=== PATIENT | male | born 1935 | race Caucasian/White ===

== ENCOUNTER 2017-09-07 09:13 | Inpatient (IN) | payer OTHER ==
[~2017-09-07] VITALS: Ht 167.6 cm; Wt 72.5 kg
[~2017-09-07 09:13] MED LIST: AMLODIPINE BESYL5 MG PO; ASPIRIN81 M1 PO; AVODART0.5 MG PO; BACTRIM,SEPT1 TABLET PO; FENOFIBRATE160 MG PO; FINASTERIDE5 M1 PO; FLEXERIL10 MG PO; HYDROCHLOROTH12.5 M1 PO; JALYN 0.5-0.41 EACH PO; JALYN PO; LEVOXYL112 MCG PO; LISINOPRIL40 MG PO; LO-DOSE ASPIRIN81 M1 PO; LOPRESSOR50 MG; METOPROLOL TAR100 MG PO; NAPROSYN500 MG PO; NASONEX17 GM BOTH NARES; NORVASC5 MG PO; OMEPRAZOLE40 M1 PO; PRAVACHOL40 MG PO; PRAVASTATIN SOD40 MG; PRAVASTATIN SOD40 MG PO; PROMETHAZINE HC25 M1 PO; Pravachol PO; TOPROL XL100 MG PO; TYLENOL REGULA325 MG PO; VIAGRA100 MG PO; XANAX0.5 MG PO; ZESTRIL,PRINIVI20 MG PO; ZETIA10 MG PO; ZITHROMAX Z-PA250 MG PO; ZOFRAN ODT4 MG PO
[2017-09-07 10:16] LABS: BASOPHIL (%) 0.1 % (0-1); EOSINOPHIL (%) 0.3 % (0-5); HEMATOCRIT 36.8 % (38.0-50.0); IMMATURE GRANULOCYTE (%) 0.4 % (0.0-0.7); LYMPHOCYTE (%) 4.9 % (15-42); LYMPHOCYTE COUNT 0.5 K/uL (1.0-2.8); MCH 29.9 PG (29.0-34.0); MCHC 33.7 G/DL (30.0-36.0); MCV 88.7 FL (86-99); MONOCYTE (%) 8.2 % (3-12); MONOCYTE COUNT 0.8 K/uL (0-0.8); NEUTROPHIL (%) 86.1 % (45-76); NEUTROPHIL COUNT 8.6 K/uL (1.8-6.4); PLATELET COUNT 132 K/uL (156-360); RBC DIS.WIDTH-CV 13.7 % (11.8-14.6); RBC DIS.WIDTH-SD 45.1 % (39-53); RED BLOOD COUNT 4.15 M/uL (4.00-5.50)
[2017-09-07 10:19] LABS: HEMOGLOBIN 12.4 G/DL (12.5-16.6)
[2017-09-07 10:29] LABS: CHLORIDE 101 mEq/L (99-109); SODIUM 136 mEq/L (136-147)
[2017-09-07 10:31] LABS: GLUCOSE 125 mg/dL (70-99)
[2017-09-07 10:35] LABS: CREATININE 1.5 mg/dL (0.6-1.3); GFR ESTIMATE (CALCULATED) 48 mL/min/ (58.99-99999)
[2017-09-07 10:36] LABS: UREA NITROGEN (BUN) 27 mg/dL (9-23)
[2017-09-07 12:13] LABS: APPEARANCE CLEAR ((CLEAR)); BILIRUBIN NEGATIVE; BLOOD SMALL; COLOR YELLOW ((YELLOW)); GLUCOSE (STRIP) NEGATIVE; KETONES NEGATIVE; LEUKOCYTES NEGATIVE; NITRITE NEGATIVE; PROTEIN (STRIP) >=500
[2017-09-07 12:18] LABS: BACTERIA RARE /HPF; EPITHELIAL CELLS NONE SEEN /HPF; HYALINE CASTS 0-5 /LPF; MUCUS TRACE /LPF; RED BLOOD CELLS 0-5 /HPF (0-5); UCUL ADDED? NO; WHITE BLOOD CELLS 0-5 /HPF (0-5)
[2017-09-07 12:53] LABS: TROP-I INTERPRETATION NEGATIVE
[2017-09-07 14:10] LABS: C-REACTIVE PROTEIN > 240.0 MG/L (0-10)
[2017-09-07 14:55] LABS: ERTH.SED.RATE 36 MM/HR (0-20)
[2017-09-07] MEDS ORDERED: ALPRAZOLAM0.5 MG PO (16:43)
[2017-09-07] MEDS ORDERED: TOPROL XL50 MG PO (16:44)
[2017-09-07] MEDS ORDERED: VITAMIN D22000 UNIT PO (16:45)
[2017-09-07] MEDS ORDERED: VITAMIN D31000 UNIT PO (16:45)
[2017-09-07] MEDS ORDERED: FLOMAX0.4 MG PO (16:46)
[2017-09-07] MEDS ORDERED: PROSCAR5 MG PO (16:47)
[2017-09-07] MEDS ORDERED: NORCO 5/3251 TABLET PO (16:47)
[2017-09-07 20:09] LABS: TROP-I INTERPRETATION POSITIVE
[2017-09-07 20:10] LABS: TROPONIN-I 2.68 ng/mL (0.0-0.30)
[2017-09-08] VITALS (10 sets, daily range): BP systolic 109–165; BP diastolic 54–82
[2017-09-08 11:50] LABS: TROP-I INTERPRETATION POSITIVE
[2017-09-08 11:53] LABS: TROPONIN-I 61.72 ng/mL (0.0-0.30)
[2017-09-08 15:49] LABS: HEMATOCRIT 36.2 % (38.0-50.0); HEMOGLOBIN 12.1 G/DL (12.5-16.6); MCH 29.1 PG (29.0-34.0); MCHC 33.4 G/DL (30.0-36.0); PLATELET COUNT 121 K/uL (156-360); RBC DIS.WIDTH-CV 13.6 % (11.8-14.6); RBC DIS.WIDTH-SD 43.1 % (39-53); RED BLOOD COUNT 4.16 M/uL (4.00-5.50); WHITE BLOOD COUNT 6.3 K/uL (4.1-10.2)
[2017-09-08 15:55] LABS: INTER. NORMALIZED RATIO 1.2
[2017-09-08 15:57] LABS: PTT 29.6 SEC (25-37)
[2017-09-08 16:00] LABS: ALBUMIN 3.3 G/DL (3.2-4.8); CHLORIDE 100 MEQ/L (99-109); POTASSIUM 3.7 MEQ/L (3.7-5.4); SODIUM 135 MEQ/L (136-147); TOTAL BILIRUBIN 1.3 MG/DL (0.0-1.0)
[2017-09-08 16:05] LABS: ALKALINE PHOSPHATASE 71 IU/L (3-129); ALT (GPT) 46 IU/L (3-49); AST (GOT) 136 IU/L (2-34); CREATININE 1.4 MG/DL (0.6-1.3); GFR ESTIMATE (CALCULATED) 52 mL/min/ (58.99-99999); GLUCOSE 126 mg/dL (70-99); TOTAL PROTEIN 5.9 G/DL (6.4-8.3); UREA NITROGEN (BUN) 29 mg/dL (9-23)
[2017-09-08 18:58] LABS: TROP-I INTERPRETATION POSITIVE; TROPONIN-I 93.92 ng/mL (0.0-0.30)
[2017-09-09] VITALS (21 sets, daily range): BP systolic 100–157; BP diastolic 51–77
[2017-09-09 03:03] LABS: TROP-I INTERPRETATION POSITIVE
[2017-09-09 03:07] LABS: TROPONIN-I 62.35 ng/mL (0.0-0.30)
[2017-09-09 13:04] LABS: HEMATOCRIT 32.4 % (38.0-50.0); HEMOGLOBIN 10.5 G/DL (12.5-16.6); MCH 28.6 PG (29.0-34.0); MCHC 32.4 G/DL (30.0-36.0); MCV 88.3 FL (86-99); PLATELET COUNT 125 K/uL (156-360); RBC DIS.WIDTH-CV 13.7 % (11.8-14.6); RBC DIS.WIDTH-SD 44.7 % (39-53); RED BLOOD COUNT 3.67 M/uL (4.00-5.50); WHITE BLOOD COUNT 6.3 K/uL (4.1-10.2)
[2017-09-09 13:31] LABS: TROP-I INTERPRETATION POSITIVE; TROPONIN-I 33.93 ng/mL (0.0-0.30)
[2017-09-09 18:32] LABS: TROP-I INTERPRETATION POSITIVE; TROPONIN-I 35.13 ng/mL (0.0-0.30)
[2017-09-10] VITALS (19 sets, daily range): BP systolic 95–162; BP diastolic 46–88
[2017-09-10 05:48] LABS: HEMATOCRIT 33.6 % (38.0-50.0); MCH 28.9 PG (29.0-34.0); MCHC 32.7 G/DL (30.0-36.0); MCV 88.2 FL (86-99); PLATELET COUNT 128 K/uL (156-360); RBC DIS.WIDTH-CV 14.2 % (11.8-14.6); RBC DIS.WIDTH-SD 45.9 % (39-53); RED BLOOD COUNT 3.81 M/uL (4.00-5.50); WHITE BLOOD COUNT 5.6 K/uL (4.1-10.2)
[2017-09-10 07:31] LABS: CHLORIDE 104 MEQ/L (99-109); CREATININE 2.2 MG/DL (0.6-1.3); GFR ESTIMATE (CALCULATED) 31 mL/min/ (58.99-99999); GLUCOSE 112 mg/dL (70-99); POTASSIUM 3.5 MEQ/L (3.7-5.4); SODIUM 140 MEQ/L (136-147); UREA NITROGEN (BUN) 38 mg/dL (9-23)
[2017-09-11 00:12] VITALS: BP 155/70
[2017-09-11 03:56] VITALS: BP 162/71
[2017-09-11 06:00] LABS: BASOPHIL (%) 0.3 % (0-1); EOSINOPHIL COUNT 0.1 K/uL (0-0.3); HEMATOCRIT 32.4 % (38.0-50.0); HEMOGLOBIN 10.7 G/DL (12.5-16.6); IMMATURE GRANULOCYTE (%) 0.3 % (0.0-0.7); LYMPHOCYTE (%) 10.9 % (15-42); LYMPHOCYTE COUNT 0.7 K/uL (1.0-2.8); MCH 29.2 PG (29.0-34.0); MCV 88.5 FL (86-99); MONOCYTE (%) 10.2 % (3-12); MONOCYTE COUNT 0.6 K/uL (0-0.8); NEUTROPHIL (%) 77.3 % (45-76); NEUTROPHIL COUNT 4.6 K/uL (1.8-6.4); PLATELET COUNT 142 K/uL (156-360); RBC DIS.WIDTH-CV 14.5 % (11.8-14.6); RBC DIS.WIDTH-SD 47.5 % (39-53); RED BLOOD COUNT 3.66 M/uL (4.00-5.50)
[2017-09-11 06:24] LABS: CHLORIDE 103 MEQ/L (99-109); CREATININE 2.1 MG/DL (0.6-1.3); GFR ESTIMATE (CALCULATED) 32 mL/min/ (58.99-99999); GLUCOSE 145 mg/dL (70-99); POTASSIUM 3.4 MEQ/L (3.7-5.4); SODIUM 141 MEQ/L (136-147); UREA NITROGEN (BUN) 37 mg/dL (9-23)
[2017-09-11 07:52] VITALS: BP 149/68
[2017-09-11 11:24] VITALS: BP 137/63
[2017-09-11 15:10] VITALS: BP 141/65
[2017-09-11 17:58] LABS: APPEARANCE CLOUDY ((CLEAR)); BILIRUBIN NEGATIVE; BLOOD LARGE; COLOR AMBER ((YELLOW)); GLUCOSE (STRIP) NEGATIVE; KETONES NEGATIVE; LEUKOCYTES NEGATIVE; NITRITE NEGATIVE; PROTEIN (STRIP) 100; SPECIFIC GRAVITY 1.013 (1.000-1.030)
[2017-09-11 18:17] LABS: UR CREATININE CONCENTRATION 79.9 MG/DL
[2017-09-11 18:39] LABS: EPITHELIAL CELLS NONE SEEN /HPF; MUCUS 1+ /LPF; RED BLOOD CELLS TNTC /HPF (0-5); WHITE BLOOD CELLS 0-5 /HPF (0-5)
[2017-09-11 18:40] LABS: BACTERIA 2+ /HPF; UCUL ADDED? YES
[2017-09-11 20:08] VITALS: BP 165/72
[2017-09-12] VITALS (7 sets, daily range): BP systolic 122–173; BP diastolic 58–86
[2017-09-12 05:33] LABS: HEMATOCRIT 30.7 % (38.0-50.0); MCH 28.8 PG (29.0-34.0); MCHC 32.6 G/DL (30.0-36.0); MCV 88.5 FL (86-99); PLATELET COUNT 139 K/uL (156-360); RBC DIS.WIDTH-CV 14.7 % (11.8-14.6); RBC DIS.WIDTH-SD 47.8 % (39-53); RED BLOOD COUNT 3.47 M/uL (4.00-5.50); WHITE BLOOD COUNT 5.4 K/uL (4.1-10.2)
[2017-09-12 06:09] LABS: BASOPHIL (%) 0.4 % (0-1); EOSINOPHIL (%) 3.4 % (0-5); EOSINOPHIL COUNT 0.2 K/uL (0-0.3); HEMATOLOGY COMMENT 1 SMEAR COMPATIBLE; IMMATURE GRANULOCYTE (%) 0.7 % (0.0-0.7); LYMPHOCYTE (%) 14.8 % (15-42); LYMPHOCYTE COUNT 0.8 K/uL (1.0-2.8); MONOCYTE (%) 10.7 % (3-12); MONOCYTE COUNT 0.6 K/uL (0-0.8); NEUTROPHIL COUNT 3.8 K/uL (1.8-6.4); PLAT.SUFFICIENCY DECREASED
[2017-09-12 06:29] LABS: ALBUMIN 2.6 G/DL (3.2-4.8); ALT (GPT) 42 IU/L (3-49); CHLORIDE 105 MEQ/L (99-109); GFR ESTIMATE (CALCULATED) 34 mL/min/ (58.99-99999); MAGNESIUM 2.3 mg/dl (1.3-2.7); PHOSPHORUS 2.9 mg/dL (2.5-4.9); POTASSIUM 3.7 MEQ/L (3.7-5.4); SODIUM 140 MEQ/L (136-147); TOTAL BILIRUBIN 1.5 MG/DL (0.0-1.0); TOTAL PROTEIN 5.3 G/DL (6.4-8.3); UREA NITROGEN (BUN) 36 mg/dL (9-23)
[2017-09-12 06:30] LABS: ALKALINE PHOSPHATASE 107 IU/L (3-129); AST (GOT) 58 IU/L (2-34); GLUCOSE 106 mg/dL (70-99)
[2017-09-13] VITALS (10 sets, daily range): BP systolic 145–199; BP diastolic 72–122
[2017-09-13 06:02] LABS: MCH 28.7 PG (29.0-34.0); MCHC 32.3 G/DL (30.0-36.0); MCV 89.1 FL (86-99); PLATELET COUNT 169 K/uL (156-360); RBC DIS.WIDTH-CV 14.9 % (11.8-14.6); RBC DIS.WIDTH-SD 48.4 % (39-53); RED BLOOD COUNT 3.48 M/uL (4.00-5.50); WHITE BLOOD COUNT 7.3 K/uL (4.1-10.2)
[2017-09-13 06:45] LABS: CHLORIDE 106 MEQ/L (99-109); CREATININE 1.9 MG/DL (0.6-1.3); GFR ESTIMATE (CALCULATED) 36 mL/min/ (58.99-99999); GLUCOSE 95 mg/dL (70-99); POTASSIUM 3.3 MEQ/L (3.7-5.4); SODIUM 143 MEQ/L (136-147); UREA NITROGEN (BUN) 32 mg/dL (9-23)
[2017-09-13 19:41] LABS: HEMATOCRIT 34.2 % (38.0-50.0); HEMOGLOBIN 11.2 G/DL (12.5-16.6); MCH 29.1 PG (29.0-34.0); MCHC 32.7 G/DL (30.0-36.0); MCV 88.8 FL (86-99); PLATELET COUNT 218 K/uL (156-360); RBC DIS.WIDTH-CV 14.9 % (11.8-14.6); RED BLOOD COUNT 3.85 M/uL (4.00-5.50); WHITE BLOOD COUNT 8.9 K/uL (4.1-10.2)
[2017-09-13 19:49] LABS: INTER. NORMALIZED RATIO 1.2
[2017-09-13 19:52] LABS: PTT 29.5 SEC (25-37)
[2017-09-13 20:10] LABS: ABS NEUTROPHIL COUNT 7.3; ATYPICAL LYMPHOCYTE 0.9 %; BAND NEUTROPHILS 1.7 % (0-8.0); BASOPHILS 0.9 %; EOSINOPHIL ABS CT 0.2; EOSINOPHILS 1.7 % (0-5.0); LYMPHOCYTES 4.4 % (15.0-45.0); MONOCYTES 7.8 % (0-9.0); MYELOCYTES 0.9 %; OTHER 1.7; PLAT.SUFFICIENCY ADEQUATE; POLYCHROMASIA 1+; SPHEROCYTES 1+
[2017-09-13 20:11] LABS: ALBUMIN 2.9 G/DL (3.2-4.8); ALKALINE PHOSPHATASE 108 IU/L (3-129); ALT (GPT) 48 IU/L (3-49); AST (GOT) 48 IU/L (2-34); CHLORIDE 105 MEQ/L (99-109); CREATININE 1.8 MG/DL (0.6-1.3); GFR ESTIMATE (CALCULATED) 39 mL/min/ (58.99-99999); GLUCOSE 156 mg/dL (70-99); POTASSIUM 3.6 MEQ/L (3.7-5.4); SODIUM 140 MEQ/L (136-147); TOTAL BILIRUBIN 0.9 MG/DL (0.0-1.0); TOTAL PROTEIN 6.6 G/DL (6.4-8.3); UREA NITROGEN (BUN) 28 mg/dL (9-23)
[2017-09-13 21:47] LABS: CREATINE KINASE 45 IU/L (1-294); TOTAL CK 45 IU/L (1-294)
[2017-09-13 21:50] LABS: CK-MB 1.8 ng/mL (0.0-4.9)
[2017-09-13 21:55] LABS: TROP-I INTERPRETATION POSITIVE
[2017-09-14] VITALS (25 sets, daily range): BP systolic 85–204; BP diastolic 47–105
[2017-09-14 01:51] LABS: HEMATOCRIT 35.8 % (38.0-50.0); HEMOGLOBIN 11.8 G/DL (12.5-16.6); MCH 29.8 PG (29.0-34.0); MCV 90.4 FL (86-99); PLATELET COUNT 282 K/uL (156-360); RBC DIS.WIDTH-CV 15.1 % (11.8-14.6); RBC DIS.WIDTH-SD 50.6 % (39-53); RED BLOOD COUNT 3.96 M/uL (4.00-5.50); WHITE BLOOD COUNT 17.1 K/uL (4.1-10.2)
[2017-09-14 02:05] LABS: CHLORIDE 106 mEq/L (99-109); POTASSIUM 3.3 mEq/L (3.7-5.4); SODIUM 141 mEq/L (136-147)
[2017-09-14 02:06] LABS: GLUCOSE 204 mg/dL (70-99)
[2017-09-14 02:10] LABS: CREATININE 1.8 mg/dL (0.6-1.3); GFR ESTIMATE (CALCULATED) 39 mL/min/ (58.99-99999)
[2017-09-14 02:11] LABS: UREA NITROGEN (BUN) 28 mg/dL (9-23)
[2017-09-14 02:12] LABS: CREATINE KINASE 58 IU/L (1-294); TOTAL CK 58 IU/L (1-294)
[2017-09-14 02:13] LABS: TROP-I INTERPRETATION POSITIVE
[2017-09-14 02:18] LABS: CK-MB 2.8 ng/mL (0.0-4.9); CKMB RELATIVE INDEX 4.8 (0.0-3.9)
[2017-09-14 02:19] LABS: TROPONIN-I 3.93 ng/mL (0.0-0.30)
[2017-09-14 02:42] LABS: BASE EXCESS -3.9 mEq/L (-3 to +3); BICARBONATE 21.6 mEq/L (22-26); CARBOXY HGB 0.7 % (0-5); DEVICE 980; FI02 70 %; MECHANICAL RATE 14 resp/min; METHEMOGLOBIN 1.4 % (0-1.5); PCO2 40 mm Hg (35-45); PEEP 5 CM/H20; PO2 95 mm Hg (80-100); SITE RR; TIDAL VOLUME 400 ML; TOTAL RESP RATE 19 resp/min; pH 7.34 (7.35-7.45)
[2017-09-14 03:58] LABS: TRIGLYCERIDES 676 MG/DL (Normal: <150)
[2017-09-14 05:23] LABS: BASE EXCESS -1.8 mEq/L (-3 to +3); BICARBONATE 23.1 mEq/L (22-26); CARBOXY HGB 0.7 % (0-5); METHEMOGLOBIN 1.2 % (0-1.5); PCO2 39 mm Hg (35-45); pH 7.38 (7.35-7.45)
[2017-09-14 05:24] LABS: DEVICE 980; FI02 50 %; MECHANICAL RATE 14 resp/min; MODE AC; PEEP 5 CM/H20; PO2 124 mm Hg (80-100); SITE RR; TIDAL VOLUME 400 ML; TOTAL RESP RATE 17 resp/min
[2017-09-14 10:44] LABS: TROP-I INTERPRETATION POSITIVE
[2017-09-14 12:57] LABS: CK-MB 6.2 ng/mL (0.0-4.9)
[2017-09-14 13:31] LABS: CKMB RELATIVE INDEX 11.1 (0.0-3.9); CREATINE KINASE 56 IU/L (1-294); TOTAL CK 56 IU/L (1-294)
[2017-09-15] VITALS (24 sets, daily range): BP systolic 112–174; BP diastolic 52–91
[2017-09-15 05:18] LABS: CHLORIDE 106 mEq/L (99-109); POTASSIUM 3.9 mEq/L (3.7-5.4); SODIUM 135 mEq/L (136-147)
[2017-09-15 05:19] LABS: BASOPHIL (%) 0.3 % (0-1); EOSINOPHIL (%) 1.4 % (0-5); EOSINOPHIL COUNT 0.1 K/uL (0-0.3); HEMATOCRIT 28.7 % (38.0-50.0); HEMOGLOBIN 10.4 G/DL (12.5-16.6); IMMATURE GRANULOCYTE (%) 1.1 % (0.0-0.7); LYMPHOCYTE (%) 16.6 % (15-42); LYMPHOCYTE COUNT 1.3 K/uL (1.0-2.8); MCH 32.7 PG (29.0-34.0); MCHC 36.2 G/DL (30.0-36.0); MCV 90.3 FL (86-99); MONOCYTE COUNT 0.6 K/uL (0-0.8); NEUTROPHIL (%) 72.6 % (45-76); NEUTROPHIL COUNT 5.5 K/uL (1.8-6.4); RBC DIS.WIDTH-CV 15.6 % (11.8-14.6); RBC DIS.WIDTH-SD 51.6 % (39-53); RED BLOOD COUNT 3.18 M/uL (4.00-5.50); WHITE BLOOD COUNT 7.6 K/uL (4.1-10.2)
[2017-09-15 05:24] LABS: CREATININE 1.8 mg/dL (0.6-1.3); GFR ESTIMATE (CALCULATED) 39 mL/min/ (58.99-99999); GLUCOSE 70 mg/dL (70-99)
[2017-09-15 05:25] LABS: UREA NITROGEN (BUN) 27 mg/dL (9-23)
[2017-09-15 06:05] LABS: PLAT.SUFFICIENCY ADEQUATE
[2017-09-15 06:23] LABS: PLATELET COUNT 176 K/uL (156-360)
[2017-09-15 11:37] LABS: C DIFF TOXIN NEGATIVE (NEGATIVE)
[2017-09-16] VITALS (23 sets, daily range): BP systolic 118–188; BP diastolic 59–108
[2017-09-16 06:44] LABS: CHLORIDE 110 MEQ/L (99-109); CREATININE 1.7 MG/DL (0.6-1.3); GFR ESTIMATE (CALCULATED) 41 mL/min/ (58.99-99999); POTASSIUM 3.3 MEQ/L (3.7-5.4); UREA NITROGEN (BUN) 24 mg/dL (9-23)
[2017-09-16 06:49] LABS: GLUCOSE 117 mg/dL (70-99); SODIUM 143 MEQ/L (136-147)
[2017-09-16 08:15] LABS: TROP-I INTERPRETATION POSITIVE; TROPONIN-I 10.32 ng/mL (0.0-0.30)
[2017-09-16 09:03] LABS: BASE EXCESS -4.9 mEq/L (-3 to +3); BICARBONATE 19.7 mEq/L (22-26); CARBOXY HGB 1.7 % (0-5); METHEMOGLOBIN 1.4 % (0-1.5); pH 7.37 (7.35-7.45)
[2017-09-16 09:04] LABS: COMMENTS - BLOOD GASES A+C+; DEVICE 840; FI02 100 %; MODE MASK VENT; PCO2 34 mm Hg (35-45); PO2 223 mm Hg (80-100); SITE RR
[2017-09-16 09:05] LABS: PEEP 6 CM/H20; PRES. SUPPORT 12 CM/H2O; TOTAL RESP RATE 17 resp/min
[2017-09-16 15:08] LABS: TROP-I INTERPRETATION POSITIVE; TROPONIN-I 9.71 ng/mL (0.0-0.30)
[2017-09-17] VITALS (24 sets, daily range): BP systolic 125–187; BP diastolic 63–117
[2017-09-17 04:43] LABS: BASOPHIL (%) 0.3 % (0-1); EOSINOPHIL (%) 0.2 % (0-5); HEMATOCRIT 29.9 % (38.0-50.0); HEMOGLOBIN 9.8 G/DL (12.5-16.6); LYMPHOCYTE (%) 7.7 % (15-42); LYMPHOCYTE COUNT 0.9 K/uL (1.0-2.8); MCH 29.6 PG (29.0-34.0); MCHC 32.8 G/DL (30.0-36.0); MCV 90.3 FL (86-99); MONOCYTE (%) 5.6 % (3-12); MONOCYTE COUNT 0.7 K/uL (0-0.8); NEUTROPHIL (%) 85.2 % (45-76); NEUTROPHIL COUNT 9.9 K/uL (1.8-6.4); RBC DIS.WIDTH-CV 15.6 % (11.8-14.6); RBC DIS.WIDTH-SD 51.5 % (39-53); RED BLOOD COUNT 3.31 M/uL (4.00-5.50); WHITE BLOOD COUNT 11.6 K/uL (4.1-10.2)
[2017-09-17 04:51] LABS: PLATELET COUNT 242 K/uL (156-360)
[2017-09-17 05:03] LABS: CHLORIDE 112 mEq/L (99-109); POTASSIUM 3.8 mEq/L (3.7-5.4); SODIUM 142 mEq/L (136-147)
[2017-09-17 05:05] LABS: GLUCOSE 104 mg/dL (70-99)
[2017-09-17 05:09] LABS: CREATININE 1.8 mg/dL (0.6-1.3); GFR ESTIMATE (CALCULATED) 39 mL/min/ (58.99-99999)
[2017-09-17 05:10] LABS: UREA NITROGEN (BUN) 23 mg/dL (9-23)
[2017-09-18] VITALS (23 sets, daily range): BP systolic 108–176; BP diastolic 62–93
[2017-09-18 05:26] LABS: BASOPHIL (%) 0.1 % (0-1); EOSINOPHIL (%) 0 % (0-5); HEMATOCRIT 29.2 % (38.0-50.0); HEMOGLOBIN 9.1 G/DL (12.5-16.6); IMMATURE GRANULOCYTE (%) 0.9 % (0.0-0.7); LYMPHOCYTE COUNT 0.5 K/uL (1.0-2.8); MCH 28.4 PG (29.0-34.0); MCHC 31.2 G/DL (30.0-36.0); MCV 91.3 FL (86-99); MONOCYTE COUNT 0.5 K/uL (0-0.8); PLATELET COUNT 264 K/uL (156-360); RBC DIS.WIDTH-CV 15.6 % (11.8-14.6); RBC DIS.WIDTH-SD 51.8 % (39-53); WHITE BLOOD COUNT 10.1 K/uL (4.1-10.2)
[2017-09-18 05:56] LABS: CHLORIDE 109 MEQ/L (99-109); GFR ESTIMATE (CALCULATED) 34 mL/min/ (58.99-99999); GLUCOSE 124 mg/dL (70-99); POTASSIUM 3.9 MEQ/L (3.7-5.4); SODIUM 145 MEQ/L (136-147); UREA NITROGEN (BUN) 23 mg/dL (9-23)
[2017-09-18 05:59] LABS: PHOSPHORUS 4.1 mg/dL (2.5-4.9)
[2017-09-19] VITALS (24 sets, daily range): BP systolic 104–187; BP diastolic 51–122
[2017-09-19 08:18] LABS: HEMATOCRIT 29.6 % (38.0-50.0); HEMOGLOBIN 9.3 G/DL (12.5-16.6); MCH 28.7 PG (29.0-34.0); MCHC 31.4 G/DL (30.0-36.0); MCV 91.4 FL (86-99); PLATELET COUNT 300 K/uL (156-360); RBC DIS.WIDTH-CV 15.6 % (11.8-14.6); RBC DIS.WIDTH-SD 52.6 % (39-53); RED BLOOD COUNT 3.24 M/uL (4.00-5.50); WHITE BLOOD COUNT 10.5 K/uL (4.1-10.2)
[2017-09-19 08:36] LABS: BASE EXCESS -3.6 mEq/L (-3 to +3); BICARBONATE 21.5 mEq/L (22-26); CARBOXY HGB 0.7 % (0-5); METHEMOGLOBIN 1.6 % (0-1.5); PCO2 38 mm Hg (35-45); pH 7.36 (7.35-7.45)
[2017-09-19 08:37] LABS: COMMENTS - BLOOD GASES +C; PO2 171 mm Hg (80-100); SITE RR +A
[2017-09-19 08:38] LABS: DEVICE 980; FI02 70 %; MODE NIV; TOTAL RESP RATE 19 resp/min
[2017-09-19 08:38] LABS: CHLORIDE 109 MEQ/L (99-109); CREATININE 1.9 MG/DL (0.6-1.3); GFR ESTIMATE (CALCULATED) 36 mL/min/ (58.99-99999); GLUCOSE 161 mg/dL (70-99); POTASSIUM 3.4 MEQ/L (3.7-5.4); SODIUM 143 MEQ/L (136-147); UREA NITROGEN (BUN) 22 mg/dL (9-23)
[2017-09-19 08:39] LABS: PEEP 5 CM/H20; PRES. SUPPORT 14 CM/H2O
[2017-09-20] VITALS (24 sets, daily range): BP systolic 118–169; BP diastolic 56–104
[2017-09-20 05:06] LABS: BASOPHIL (%) 0.4 % (0-1); EOSINOPHIL (%) 0.5 % (0-5); HEMATOCRIT 24.8 % (38.0-50.0); IMMATURE GRANULOCYTE (%) 0.7 % (0.0-0.7); LYMPHOCYTE (%) 12.8 % (15-42); MCH 28.8 PG (29.0-34.0); MCHC 32.3 G/DL (30.0-36.0); MCV 89.2 FL (86-99); MONOCYTE COUNT 0.5 K/uL (0-0.8); NEUTROPHIL (%) 79.6 % (45-76); NEUTROPHIL COUNT 6.1 K/uL (1.8-6.4); PLATELET COUNT 280 K/uL (156-360); RBC DIS.WIDTH-CV 15.8 % (11.8-14.6); RBC DIS.WIDTH-SD 50.5 % (39-53); RED BLOOD COUNT 2.78 M/uL (4.00-5.50); WHITE BLOOD COUNT 7.7 K/uL (4.1-10.2)
[2017-09-20 05:33] LABS: CHLORIDE 107 MEQ/L (99-109); CREATININE 1.9 MG/DL (0.6-1.3); GFR ESTIMATE (CALCULATED) 36 mL/min/ (58.99-99999); MAGNESIUM 1.8 mg/dl (1.3-2.7); POTASSIUM 3.3 MEQ/L (3.7-5.4); SODIUM 143 MEQ/L (136-147); UREA NITROGEN (BUN) 22 mg/dL (9-23)
[2017-09-20 05:39] LABS: BASE EXCESS 2.4 mEq/L (-3 to +3); BICARBONATE 26.2 mEq/L (22-26); CARBOXY HGB 2.2 % (0-5); METHEMOGLOBIN 0.7 % (0-1.5); PCO2 36 mm Hg (35-45); pH 7.47 (7.35-7.45)
[2017-09-20 05:40] LABS: COMMENTS - BLOOD GASES C+; DEVICE MASK VENT; FI02 30 %; MODE SPONT; PEEP 5 CM/H20; PRES. SUPPORT 10 CM/H2O; SITE LR; TOTAL RESP RATE 22 resp/min
[2017-09-20 05:47] LABS: GLUCOSE 85 mg/dL (70-99)
[2017-09-21] VITALS (24 sets, daily range): BP systolic 127–160; BP diastolic 65–110
[2017-09-21 05:04] LABS: BASOPHIL (%) 0.5 % (0-1); BASOPHIL COUNT 0.1 K/uL (0-0.1); EOSINOPHIL COUNT 0.1 K/uL (0-0.3); HEMATOCRIT 29.6 % (38.0-50.0); HEMOGLOBIN 9.6 G/DL (12.5-16.6); IMMATURE GRANULOCYTE (%) 0.8 % (0.0-0.7); LYMPHOCYTE (%) 13.8 % (15-42); LYMPHOCYTE COUNT 1.3 K/uL (1.0-2.8); MCH 29.1 PG (29.0-34.0); MCHC 32.4 G/DL (30.0-36.0); MCV 89.7 FL (86-99); MONOCYTE (%) 7.1 % (3-12); MONOCYTE COUNT 0.7 K/uL (0-0.8); NEUTROPHIL (%) 76.8 % (45-76); NEUTROPHIL COUNT 7.1 K/uL (1.8-6.4); PLATELET COUNT 309 K/uL (156-360); RBC DIS.WIDTH-CV 15.8 % (11.8-14.6); RBC DIS.WIDTH-SD 50.3 % (39-53); WHITE BLOOD COUNT 9.2 K/uL (4.1-10.2)
[2017-09-21 06:04] LABS: CHLORIDE 104 MEQ/L (99-109); CREATININE 2.1 MG/DL (0.6-1.3); GFR ESTIMATE (CALCULATED) 32 mL/min/ (58.99-99999); GLUCOSE 88 mg/dL (70-99); MAGNESIUM 1.6 mg/dl (1.3-2.7); PHOSPHORUS 3.1 mg/dL (2.5-4.9); POTASSIUM 3.1 MEQ/L (3.7-5.4); SODIUM 146 MEQ/L (136-147); UREA NITROGEN (BUN) 21 mg/dL (9-23)
[2017-09-22] VITALS (21 sets, daily range): BP systolic 117–175; BP diastolic 63–95
[2017-09-22 09:41] LABS: BASOPHIL (%) 0.5 % (0-1); EOSINOPHIL (%) 0.4 % (0-5); HEMATOCRIT 29.7 % (38.0-50.0); HEMOGLOBIN 9.6 G/DL (12.5-16.6); IMMATURE GRANULOCYTE (%) 0.6 % (0.0-0.7); LYMPHOCYTE (%) 11.8 % (15-42); LYMPHOCYTE COUNT 0.9 K/uL (1.0-2.8); MCH 28.6 PG (29.0-34.0); MCHC 32.3 G/DL (30.0-36.0); MCV 88.4 FL (86-99); MONOCYTE (%) 6.2 % (3-12); MONOCYTE COUNT 0.5 K/uL (0-0.8); NEUTROPHIL (%) 80.5 % (45-76); NEUTROPHIL COUNT 6.2 K/uL (1.8-6.4); PLATELET COUNT 290 K/uL (156-360); RBC DIS.WIDTH-CV 15.5 % (11.8-14.6); RED BLOOD COUNT 3.36 M/uL (4.00-5.50); WHITE BLOOD COUNT 7.7 K/uL (4.1-10.2)
[2017-09-22 10:05] LABS: CHLORIDE 101 MEQ/L (99-109); POTASSIUM 2.8 MEQ/L (3.7-5.4); SODIUM 143 MEQ/L (136-147)
[2017-09-22 10:11] LABS: CREATININE 1.8 MG/DL (0.6-1.3); GFR ESTIMATE (CALCULATED) 39 mL/min/ (58.99-99999); UREA NITROGEN (BUN) 20 mg/dL (9-23)
[2017-09-22 10:12] LABS: GLUCOSE 115 mg/dL (70-99)
[2017-09-22 19:39] LABS: CHLORIDE 102 mEq/L (99-109); SODIUM 142 mEq/L (136-147)
[2017-09-22 19:40] LABS: POTASSIUM 3.5 mEq/L (3.7-5.4)
[2017-09-22 19:41] LABS: GLUCOSE 115 mg/dL (70-99)
[2017-09-22 19:44] LABS: CREATININE 1.9 mg/dL (0.6-1.3); GFR ESTIMATE (CALCULATED) 36 mL/min/ (58.99-99999)
[2017-09-22 19:45] LABS: UREA NITROGEN (BUN) 20 mg/dL (9-23)
[2017-09-23 03:55] VITALS: BP 169/92
[2017-09-23 05:07] LABS: BASOPHIL (%) 0.4 % (0-1); EOSINOPHIL (%) 0 % (0-5); HEMOGLOBIN 10.6 G/DL (12.5-16.6); IMMATURE GRANULOCYTE (%) 0.7 % (0.0-0.7); LYMPHOCYTE (%) 16.2 % (15-42); LYMPHOCYTE COUNT 1.5 K/uL (1.0-2.8); MCH 29.5 PG (29.0-34.0); MCHC 33.1 G/DL (30.0-36.0); MCV 89.1 FL (86-99); MONOCYTE (%) 6.2 % (3-12); MONOCYTE COUNT 0.6 K/uL (0-0.8); NEUTROPHIL (%) 76.5 % (45-76); NEUTROPHIL COUNT 7.1 K/uL (1.8-6.4); PLATELET COUNT 301 K/uL (156-360); RBC DIS.WIDTH-CV 16.4 % (11.8-14.6); RBC DIS.WIDTH-SD 49.4 % (39-53); RED BLOOD COUNT 3.59 M/uL (4.00-5.50); WHITE BLOOD COUNT 9.2 K/uL (4.1-10.2)
[2017-09-23 05:38] LABS: CHLORIDE 102 MEQ/L (99-109); CREATININE 1.8 MG/DL (0.6-1.3); GFR ESTIMATE (CALCULATED) 39 mL/min/ (58.99-99999); GLUCOSE 102 mg/dL (70-99); POTASSIUM 3.2 MEQ/L (3.7-5.4); SODIUM 145 MEQ/L (136-147); UREA NITROGEN (BUN) 19 mg/dL (9-23)
[2017-09-23 08:36] VITALS: BP 179/84
[2017-09-23 15:07] VITALS: BP 161/73
[2017-09-23 21:00] VITALS: BP 176/77
[2017-09-23 22:54] VITALS: BP 167/75
[2017-09-24 03:58] VITALS: BP 142/64
[2017-09-24 07:50] VITALS: BP 151/65
[2017-09-24 09:38] LABS: CHLORIDE 106 MEQ/L (99-109); CREATININE 1.8 MG/DL (0.6-1.3); GFR ESTIMATE (CALCULATED) 39 mL/min/ (58.99-99999); GLUCOSE 115 mg/dL (70-99); POTASSIUM 3.8 MEQ/L (3.7-5.4); SODIUM 146 MEQ/L (136-147); UREA NITROGEN (BUN) 21 mg/dL (9-23)
[2017-09-24 11:53] VITALS: BP 122/62
[2017-09-24 16:00] VITALS: BP 154/70
[2017-09-24 20:28] VITALS: BP 148/73
[2017-09-25 01:10] VITALS: BP 129/60
[2017-09-25 06:49] LABS: CHLORIDE 105 MEQ/L (99-109); CREATININE 1.9 MG/DL (0.6-1.3); GFR ESTIMATE (CALCULATED) 36 mL/min/ (58.99-99999); GLUCOSE 97 mg/dL (70-99); POTASSIUM 4.1 MEQ/L (3.7-5.4); SODIUM 146 MEQ/L (136-147); UREA NITROGEN (BUN) 21 mg/dL (9-23)
[2017-09-25 08:00] VITALS: BP 146/65
[2017-09-25] MEDS ORDERED: ANCEF,KEFZOL1 GM IV (09:33)
[2017-09-25] MEDS ORDERED: CLOPIDOGREL75 MG PO (09:34)
[2017-09-25] MEDS ORDERED: QUETIAPINE FUMA25 MG PO (09:35)
[2017-09-25] MEDS ORDERED: FUROSEMIDE20 MG PO (09:37)
[2017-09-25] MEDS ORDERED: K-DUR20 MEQ PO (09:37)
[2017-09-25] MEDS ORDERED: NASAL DECONGEST30 ML BOTH NARES (09:38)
[2017-09-25] MEDS ORDERED: MITRAZOL 2% CRE45 GM TP (09:38)
[2017-09-25] MEDS ORDERED: ALPRAZOLAM0.25 M2 PO (09:41)
[2017-09-25] MEDS ORDERED: NORCO 5/3251 TABLET PO (09:41)
[2017-09-25 12:04] VITALS: BP 147/69
== END 2017-09-25 13:14 | DRG 856 ==
LOC: EME 09:13 → 4WEST 16:40 → EDOF 16:40 → 3EAST 16:40 → ENRESERV 17:37 → EDOF 21:20 → ENRESERV 21:37 → 4WEST 09-08 15:17 → ENRESERV 09-10 16:55 → 3EAST 09-10 21:18 → ENRESERV 09-13 19:25 → 4WEST 09-13 19:38 → ENRESERV 09-22 15:32 → 4EAST 09-22 18:03 → ENRESERV 09-23 20:17 → 4SOUTH 09-23 20:34 → 4EAST 09-23 20:35 → ENRESERV 09-23 20:44 → 4SOUTH 09-23 22:41
PROVIDERS: Hospitalist; Internal Medicine; Internal Medicine Cardiovascular Disease; Internal Medicine Critical Care Medicine; Internal Medicine Nephrology; Neurological Surgery; Physician Assistant; Physician Assistant Medical; Surgery
PROC: 0BH18EZ Insertion of Endotracheal Airway into Trachea, Via Natural or Artificial Opening Endoscopic (ICD-10-PCS; principal; 2017-09-14)
PROC: B41F1ZZ Fluoroscopy of Right Lower Extremity Arteries using Low Osmolar Contrast (ICD-10-PCS; principal; 2017-09-14)
PROC: 4A023N7 Measurement of Cardiac Sampling and Pressure, Left Heart, Percutaneous Approach (ICD-10-PCS; principal; 2017-09-14)
PROC: B2131ZZ Fluoroscopy of Multiple Coronary Artery Bypass Grafts using Low Osmolar Contrast (ICD-10-PCS; principal; 2017-09-14)
PROC: 027034Z Dilation of Coronary Artery, One Artery with Drug-eluting Intraluminal Device, Percutaneous Approach (ICD-10-PCS; principal; 2017-09-14)
PROC: B3121ZZ Fluoroscopy of Left Subclavian Artery using Low Osmolar Contrast (ICD-10-PCS; principal; 2017-09-14)
PROC: B2111ZZ Fluoroscopy of Multiple Coronary Arteries using Low Osmolar Contrast (ICD-10-PCS; principal; 2017-09-14)
PROC: 5A1945Z Respiratory Ventilation, 24-96 Consecutive Hours (ICD-10-PCS; principal; 2017-09-14)
PROC: 3E073GC Introduction of Other Therapeutic Substance into Coronary Artery, Percutaneous Approach (ICD-10-PCS; principal; 2017-09-14)
PROC: 5A09357 Assistance with Respiratory Ventilation, Less than 24 Consecutive Hours, Continuous Positive Airway Pressure (ICD-10-PCS; 2017-09-16)
PROC: 0W3Q7ZZ Control Bleeding in Respiratory Tract, Via Natural or Artificial Opening (ICD-10-PCS; 2017-09-21)
DX: T81.4XXA Infection following a procedure, initial encounter (principal); A41.01 Sepsis due to Methicillin susceptible Staphylococcus aureus; R65.20 Severe sepsis without septic shock; T82.868A Thrombosis due to vascular prosthetic devices, implants and grafts, initial encounter; Y83.2 Surgical operation with anastomosis, bypass or graft as the cause of abnormal reaction of the patient, or of later complication, without mention of misadventure at the time of the procedure; I21.4 Non-ST elevation (NSTEMI) myocardial infarction; G96.0 Cerebrospinal fluid leak; N17.0 Acute kidney failure with tubular necrosis; J96.01 Acute respiratory failure with hypoxia; G92 Toxic encephalopathy; J18.9 Pneumonia, unspecified organism; E87.2 Acidosis; R31.0 Gross hematuria; I25.82 Chronic total occlusion of coronary artery; I13.0 Hypertensive heart and chronic kidney disease with heart failure and stage 1 through stage 4 chronic kidney disease, or unspecified chronic kidney disease; I50.9 Heart failure, unspecified; N18.3 Chronic kidney disease, stage 3 (moderate); N40.1 Benign prostatic hyperplasia with lower urinary tract symptoms; R33.8 Other retention of urine; N32.0 Bladder-neck obstruction; R04.0 Epistaxis; E87.6 Hypokalemia; I25.119 Atherosclerotic heart disease of native coronary artery with unspecified angina pectoris; I25.5 Ischemic cardiomyopathy; I35.0 Nonrheumatic aortic (valve) stenosis; G89.29 Other chronic pain; M54.40 Lumbago with sciatica, unspecified side; E78.5 Hyperlipidemia, unspecified; E03.9 Hypothyroidism, unspecified; F41.9 Anxiety disorder, unspecified; K21.9 Gastro-esophageal reflux disease without esophagitis; D64.9 Anemia, unspecified; Z98.1 Arthrodesis status; Z91.81 History of falling; I25.2 Old myocardial infarction; Z95.1 Presence of aortocoronary bypass graft; Z79.82 Long term (current) use of aspirin; Z87.891 Personal history of nicotine dependence; Z90.2 Acquired absence of lung [part of]
CPT/HCPCS: 36600; 70450; 71045; 71046; 72131; 76770; 80048; 80048 91; 80053; 81003; 82436; 82550; 82550 91; 82553; 82570; 82803; 82948; 83605; 83735; 83880; 84100; 84133; 84300; 84478; 84484; 85025; 85027; 85347; 85610; 85651; 85730; 86140; 87040; 87070; 87075; 87077; 87086; 87186; 87205; 87493; 87502; 87641; 87801; 93005; 93306; 93308; 93970; 94002; 94003; 94010; 94640; 94640 76; 94660; 94760; 94799; 97530 GO; 97530 GP; 99202; 99281; 99285; C1725; C1769; C1874; C1887; C1894; J0153; J0583; J0690; J1630; J1644; J1650; J1940; J1956; J2270; J2405; J2543; J2704; J3010; J3480; J7030; J7050; J7120; S0032

== ENCOUNTER 2017-10-27 13:08 | Emergency (ER) | payer OTHER ==
[~2017-10-27] VITALS: Ht 170.2 cm; Wt 66.9 kg
[~2017-10-27 13:08] MED LIST changes: +ALPRAZOLAM0.25 M2 PO; +ALPRAZOLAM0.5 MG PO; +ANCEF,KEFZOL1 GM IV; +CLOPIDOGREL75 MG PO; +FLOMAX0.4 MG PO; +FUROSEMIDE20 MG PO; +K-DUR20 MEQ PO; +MITRAZOL 2% CRE45 GM TP; +NASAL DECONGEST30 ML BOTH NARES; +NORCO 5/3251 TABLET PO; +PROSCAR5 MG PO; +QUETIAPINE FUMA25 MG PO; +TOPROL XL50 MG PO; +VITAMIN D22000 UNIT PO; +VITAMIN D31000 UNIT PO
[2017-10-27 14:18] LABS: APPEARANCE TURBID ((CLEAR)); BILIRUBIN NEGATIVE; BLOOD MODERATE; COLOR YELLOW ((YELLOW)); GLUCOSE (STRIP) NEGATIVE; KETONES NEGATIVE; LEUKOCYTES LARGE; NITRITE NEGATIVE; PROTEIN (STRIP) 100; SPECIFIC GRAVITY 1.012 (1.000-1.030); UROBILINOGEN 0.2 MG/DL (0.2-1.0)
[2017-10-27 14:39] LABS: BACTERIA NONE SEEN /HPF; EPITHELIAL CELLS NONE SEEN /HPF; MUCUS NONE SEEN /LPF; RED BLOOD CELLS RARE /HPF (0-5); UCUL ADDED? YES; WHITE BLOOD CELLS TNTC /HPF (0-5)
[2017-10-27 14:46] LABS: BASOPHIL (%) 0.4 % (0-1); EOSINOPHIL COUNT 0.3 K/uL (0-0.3); HEMATOCRIT 28.5 % (38.0-50.0); HEMOGLOBIN 9.4 G/DL (12.5-16.6); IMMATURE GRANULOCYTE (%) 0.6 % (0.0-0.7); LYMPHOCYTE (%) 27.6 % (15-42); LYMPHOCYTE COUNT 1.3 K/uL (1.0-2.8); MCH 30.1 PG (29.0-34.0); MCV 91.3 FL (86-99); MONOCYTE (%) 11.8 % (3-12); MONOCYTE COUNT 0.6 K/uL (0-0.8); NEUTROPHIL (%) 53.6 % (45-76); NEUTROPHIL COUNT 2.6 K/uL (1.8-6.4); PLATELET COUNT 149 K/uL (156-360); RBC DIS.WIDTH-CV 14.8 % (11.8-14.6); RBC DIS.WIDTH-SD 49.4 % (39-53); RED BLOOD COUNT 3.12 M/uL (4.00-5.50); WHITE BLOOD COUNT 4.9 K/uL (4.1-10.2)
[2017-10-27 14:58] LABS: ALBUMIN 3.5 g/dL (3.2-4.8); CHLORIDE 108 mEq/L (99-109); POTASSIUM 5.9 mEq/L (3.7-5.4); SODIUM 138 mEq/L (136-147)
[2017-10-27 15:01] LABS: GLUCOSE 98 mg/dL (70-99); TOTAL PROTEIN 6.9 g/dL (6.4-8.3)
[2017-10-27 15:03] LABS: TOTAL BILIRUBIN 0.6 mg/dL (0.0-1.0)
[2017-10-27 15:04] LABS: ALKALINE PHOSPHATASE 75 IU/L (3-129); CREATININE 1.9 mg/dL (0.6-1.3); GFR ESTIMATE (CALCULATED) 36 mL/min/ (58.99-99999)
[2017-10-27 15:06] LABS: AST (GOT) 15 IU/L (2-34); UREA NITROGEN (BUN) 40 mg/dL (9-23)
[2017-10-27 15:07] LABS: ALT (GPT) 8 IU/L (3-49)
[2017-10-27] MEDS ORDERED: CEFTIN250 MG PO (17:59)
[2017-10-27 18:30] VITALS: BP 146/81
== END 2017-10-27 18:48 | disposition home or self-care (01) ==
LOC: EME 13:08
PROVIDERS: Emergency Medicine
DX: N39.0 Urinary tract infection, site not specified (principal); E86.0 Dehydration; E87.5 Hyperkalemia; I10 Essential (primary) hypertension; E78.5 Hyperlipidemia, unspecified; K21.9 Gastro-esophageal reflux disease without esophagitis; F41.9 Anxiety disorder, unspecified; F32.9 Major depressive disorder, single episode, unspecified; I25.2 Old myocardial infarction; Z95.1 Presence of aortocoronary bypass graft; Z87.891 Personal history of nicotine dependence; Z79.82 Long term (current) use of aspirin; Z88.8 Allergy status to other drugs, medicaments and biological substances
CPT/HCPCS: 80053; 81003; 84132 91; 85025; 87086; 87106; 99281; 99285; J7030

== ENCOUNTER 2018-01-25 13:17 | Observation (INO) | payer OTHER ==
[~2018-01-25] VITALS: Ht 167.6 cm; Wt 69.8 kg
[~2018-01-25 13:17] MED LIST changes: +CEFTIN250 MG PO; -VITAMIN D22000 UNIT PO; +VITAMIN D32000 UNI1 PO
[2018-01-25 13:49] LABS: HEMOGLOBIN 12.6 G/DL (12.5-16.6); MCH 29.5 PG (29.0-34.0); MCHC 34.1 G/DL (30.0-36.0); MCV 86.7 FL (86-99); PLATELET COUNT 147 K/uL (156-360); RBC DIS.WIDTH-CV 14.1 % (11.8-14.6); RBC DIS.WIDTH-SD 44.4 % (39-53); RED BLOOD COUNT 4.27 M/uL (4.00-5.50); WHITE BLOOD COUNT 6.1 K/uL (4.1-10.2)
[2018-01-25 14:00] LABS: CHLORIDE 107 mEq/L (99-109); POTASSIUM 4.7 mEq/L (3.7-5.4); SODIUM 141 mEq/L (136-147)
[2018-01-25 14:02] LABS: GLUCOSE 113 mg/dL (70-99)
[2018-01-25 14:06] LABS: CREATININE 1.6 mg/dL (0.6-1.3); GFR ESTIMATE (CALCULATED) 44 mL/min/ (58.99-99999)
[2018-01-25 14:07] LABS: UREA NITROGEN (BUN) 41 mg/dL (9-23)
[2018-01-25 14:11] LABS: TROP-I INTERPRETATION NEGATIVE; TROPONIN-I 0.02 ng/mL (0.0-0.30)
[2018-01-25 16:51] VITALS: BP 115/86
[2018-01-25] MEDS ORDERED: LASIX20 MG PO (17:17)
[2018-01-25] MEDS ORDERED: MYRBETRIQ25 MG PO (17:20)
[2018-01-25] MEDS ORDERED: AFRIN,GENASAL D15 ML BOTH NARES (18:51)
[2018-01-25 19:45] VITALS: BP 150/72
[2018-01-25 20:21] LABS: TROP-I INTERPRETATION NEGATIVE; TROPONIN-I 0.02 ng/mL (0.0-0.30)
[2018-01-26 00:08] VITALS: BP 119/57
[2018-01-26 02:34] LABS: TROP-I INTERPRETATION NEGATIVE; TROPONIN-I 0.02 ng/mL (0.0-0.30)
[2018-01-26 03:56] VITALS: BP 103/49
[2018-01-26 05:37] LABS: TROP-I INTERPRETATION NEGATIVE; TROPONIN-I 0.01 ng/mL (0.0-0.30)
[2018-01-26 05:47] LABS: CHLORIDE 108 MEQ/L (99-109); CREATININE 1.7 MG/DL (0.6-1.3); GFR ESTIMATE (CALCULATED) 41 mL/min/ (58.99-99999); GLUCOSE 86 mg/dL (70-99); POTASSIUM 4.2 MEQ/L (3.7-5.4); SODIUM 142 MEQ/L (136-147); UREA NITROGEN (BUN) 38 mg/dL (9-23)
[2018-01-26 08:11] VITALS: BP 162/88
[2018-01-26 11:26] VITALS: BP 152/67
== END 2018-01-26 13:18 | disposition home or self-care (01) ==
LOC: EME 13:17 → EDOF 14:29 → 4SOUTH 14:29 → EDOF 14:29 → ENRESERV 15:19 → 4SOUTH 16:37
PROVIDERS: Family Medicine; Internal Medicine Cardiovascular Disease
DX: R07.89 Other chest pain (principal); I25.10 Atherosclerotic heart disease of native coronary artery without angina pectoris; I25.2 Old myocardial infarction; Z95.1 Presence of aortocoronary bypass graft; Z95.5 Presence of coronary angioplasty implant and graft; E78.5 Hyperlipidemia, unspecified; Z86.19 Personal history of other infectious and parasitic diseases; I12.9 Hypertensive chronic kidney disease with stage 1 through stage 4 chronic kidney disease, or unspecified chronic kidney disease; E11.22 Type 2 diabetes mellitus with diabetic chronic kidney disease; N18.3 Chronic kidney disease, stage 3 (moderate); R30.0 Dysuria; Z79.82 Long term (current) use of aspirin; N40.0 Benign prostatic hyperplasia without lower urinary tract symptoms; Z88.8 Allergy status to other drugs, medicaments and biological substances
CPT/HCPCS: 71046; 80048; 80048 91; 81003; 84484; 85027; 93005; 99281; 99285; G0378; J1650